=== PATIENT | male | born 2000 | race Caucasian/White ===

== ENCOUNTER 2021-06-26 04:23 | Emergency (ER) | payer MEDICAID ==
[~2021-06-26] VITALS: Ht 180.3 cm; Wt 74.8 kg
[2021-06-26 04:25] VITALS: BP 134/68
--- NOTE | 2021-06-26 04:31 | NUR ---
PT TAKEN TO BED 3
--- NOTE | 2021-06-26 04:51 | NUR ---
21/M AAOX4, AMBULATORY. BIB SELF C/O RIGHT SHOULDER PAIN XTODAY. PATIENT STATED "I JUST WOKE UP AND IT STARTED HURTING SO MUCH". PATIENT STATED THAT HE HAS A HX RIGHT DISLOCATED SHOULDER AND HAD SURGERY 2X ON IT. LAST SURGERY WAS 5 MONTHS AGO. PATIENT STATED THAT HE HAS DECREASED ROM. PMHX RIGHT DISLOCATED SHOULDER MEDS DENIES NKA
[2021-06-26] MEDS ORDERED: IBUPROFEN 800 MG TAB PO ONE (05:25)
--- NOTE | 2021-06-26 05:27 | NUR ---
X-Ray at bedside.
--- NOTE | 2021-06-26 06:32 | NUR ---
PATIENT SITTING IN BED, BED LOW AND LOCKED . SIDE RAIL UP FOR SAFETY. ALL NEEDS MET AT THIS TIME
--- NOTE | 2021-06-26 06:45 | NUR ---
CALLED RAD. TO GET UPDATE ON PT XRAY
--- NOTE | 2021-06-26 07:15 | NUR ---
Pt report given to Anju . Transfer of care at this time.
[2021-06-26] MEDS ORDERED: IBUP-2213 PO (07:26)
[2021-06-26 07:38] VITALS: BP 134/68
--- NOTE | 2021-06-26 07:38 | NUR ---
Patient discharged with v/s stable. Written and verbal after care instructions given and explained. Patient alert, oriented and verbalized understanding of instructions. Ambulatory with friend to car. All questions addressed prior to discharge. ID band removed. Patient advised to follow up with PMD. Rx of ibuprofen (sent) given. Patient educated on indication of medication including possible reaction and side effects. Opportunity to ask questions provided and answered. copy of xray given
== END 2021-06-26 07:38 | disposition home or self-care (01) ==
LOC: MED 04:23
DX: M25.511 Pain in right shoulder (principal)
CPT/HCPCS: 73030; 99283; Q0092